=== PATIENT | male | born 1945 ===

== ENCOUNTER → 2023-04-11 | Outpatient (CLI) | payer OTHER ==
[~2023-04-11] VITALS: Ht 180.3 cm; Wt 91.8 kg
[2023-04-11 08:32] VITALS: BP 125/67
== END | disposition home or self-care (01) ==
LOC: SRCNTR 08:29
PROVIDERS: ATTEND Internal Medicine
DX: J44.9 Chronic obstructive pulmonary disease, unspecified (principal); G47.33 Obstructive sleep apnea (adult) (pediatric); K74.60 Unspecified cirrhosis of liver; N63.20 Unspecified lump in the left breast, unspecified quadrant
CPT/HCPCS: G0463; Z7500